=== PATIENT | male | born 1985 | race African-American/Black ===

== ENCOUNTER 2018-06-21 07:12 | Emergency (ER) | payer OTHER ==
[2018-06-21] MEDS ORDERED: OXYCODONE-ACETAMINOPHEN 5-325 MG TABLET PO ONE (07:59)
[2018-06-21 09:49] VITALS: BP 133/81
--- NOTE | 2018-06-21 14:34 | ER Document Report ---
Entered by ANGE WALDRON SCRIBE 06/21/18 0801 Acting as scribe for:ROMIE MCKEON MD ED Eye Complaint - General Chief Complaint: Eye Injury Stated Complaint: RIGHT EYE INJURY Time Seen by Provider: 06/21/18 07:43 Mode of Arrival: Ambulatory Information source: Patient Notes: Patient is a 32 year old male with no significant medical history presents to the emergency department due to a right eye injury. Patient states he was bending down to feed his dogs when he proceeded to cut his eyelid on a chain linked fence. He denies any pain to the globe itself. Patient states his last tetanus shot was approximately 2 years ago. - HPI Onset: Just prior to arrival Eye location: Right Occurred at: Home, Outdoors - Related Data Allergies/Adverse Reactions: No Known Allergies Allergy (Unverified 06/21/18 07:14) Past Medical History - General Information source: Patient - Social History Smoking Status: Never Smoker Chew tobacco use (# tins/day): No Frequency of alcohol use: Occasional Drug Abuse: None Occupation: Installation Family History: Reviewed & Not Pertinent Patient has suicidal ideation: No Patient has homicidal ideation: No - Immunizations Hx Diphtheria, Pertussis, Tetanus Vaccination: Yes Review of Systems - Review of Systems Constitutional: No symptoms reported EENT: See HPI, Eye pain Cardiovascular: No symptoms reported Respiratory: No symptoms reported Gastrointestinal: No symptoms reported Genitourinary: No symptoms reported Male Genitourinary: No symptoms reported Musculoskeletal: No symptoms reported Skin: No symptoms reported Hematologic/Lymphatic: No symptoms reported Neurological/Psychological: No symptoms reported -: Yes All other systems reviewed and negative Physical Exam - Vital signs Vitals: Temp Pulse Resp BP Pulse Ox 98.1 F 68 16 121/65 98 06/21/18 07:19 06/21/18 07:19 06/21/18 07:19 06/21/18 07:19 06/21/18 07:19 - Notes Notes: GENERAL: Alert, interacts well. No acute distress. HEAD: Normocephalic, atraumatic. EYES: 1cm laceration to the right upper eyelid, extends from lid margin upwards, full thickness. No injury to globe. Pupils equal, round, and reactive to light. Extraocular movements intact. ENT: Oral mucosa moist, tongue midline. NECK: Full range of motion. Supple. Trachea midline. HEART: Regular rate and rhythm. No murmurs, gallops, or rubs. LUNGS:Clear to auscultation bilaterally, no wheezes, rales, or rhonchi. No respiratory distress. ABDOMEN: Soft, non-tender. Non-distended. Bowel sounds present in all 4 quadrants. EXTREMITIES: Moves all 4 extremities spontaneously. NEUROLOGICAL: Alert and oriented x3. Normal speech. PSYCH: Normal affect, normal mood. SKIN: Warm, dry, normal turgor. No rashes or lesions noted. Course - Vital Signs Vital signs: Temp Pulse Resp BP Pulse Ox 98.1 F 68 16 121/65 98 06/21/18 07:19 06/21/18 07:19 06/21/18 07:19 06/21/18 07:19 06/21/18 07:19 Discharge - Discharge Clinical Impression: Eyelid laceration, right Qualifiers: Encounter type: initial encounter Qualified Code(s): S01.111A - Laceration without foreign body of right eyelid and periocular area, initial encounter Condition: Stable Disposition: HOME, SELF-CARE Additional Instructions: Keep the eyelid covered with a saline moistened gauze today. Call [facility] at to make an appointment with Dr. Brunson at 3:30 PM today. They will apply a numbing cream to your eyelid so you are ready when he gets to the office about 4 PM today. Scribe Attestation: 06/21/18 09:39 I personally performed the services described in the documentation, reviewed and edited the documentation which was dictated to the scribe in my presence, and it accurately records my words and actions. I personally performed the services described in the documentation, reviewed and edited the documentation which was dictated to the scribe in my presence, and it accurately records my words and actions.
== END 2018-06-21 09:52 | disposition home or self-care (01) ==
LOC: ER 07:12
DX: S01.111A Laceration without foreign body of right eyelid and periocular area, initial encounter (principal); W26.9XXA Contact with unspecified sharp object(s), initial encounter
CPT/HCPCS: 99283